=== PATIENT | female | born 1960 | race Caucasian/White ===

== ENCOUNTER 2017-09-09 09:37 | Emergency (ER) | payer MEDICARE | END 2017-09-09 11:00 | disposition home or self-care (01) | LOC: D.ER 09:37 | DX: J20.9 Acute bronchitis, unspecified (principal); J01.90 Acute sinusitis, unspecified; J44.9 Chronic obstructive pulmonary disease, unspecified; E11.9 Type 2 diabetes mellitus without complications ==

== ENCOUNTER 2017-10-18 10:38 | Emergency (ER) | payer MEDICARE ==
[2017-10-18 11:10] LABS: APPEARANCE HAZY (CLEAR); BILIRUBIN NEGATIVE (NEGATIVE); COLOR YELLOW (YELLOW); GLUCOSE 100 mg/dL (NEGATIVE); KETONE NEGATIVE (NEGATIVE); NITRITE NEGATIVE (NEGATIVE); PROTEIN NEGATIVE (NEGATIVE); UROBILINOGEN NORMAL (NORMAL)
[2017-10-18 11:17] LABS: BACTERIA MANY /hpf (NONE SEEN); MUCUS <1+ /lpf (NONE SEEN); RED CELLS - URINE 0-5 /hpf (0-5); YEAST <1+ /hpf (NONE SEEN)
[2017-10-18 11:51] LABS: BASOPHILS 0.4 % (0-2); EOSINOPHILS 1.6 % (0-7); HEMATOCRIT 37.9 % (36.0-48.0); HEMOGLOBIN 12.1 g/dL (12-16); IMMATURE GRANULOCYTES 0.4 % (0-5); LYMPHOCYTES 25.4 % (15-50); MCH 24.8 pg (26.0-34.0); MCHC 31.9 g/dL (31.0-37.0); MCV 77.7 fL (80.0-100.0); MEAN PLATELET VOLUME 9.3 fL (7.4-10.4); MONOCYTES 6.5 % (2-11); NEUTROPHILS 65.7 % (40-80); PLATELET COUNT 213 10x3/uL (130-400); RBC 4.88 10x6/uL (4.00-5.40); RDW 16.2 % (11.5-14.5); WBC 7.6 10x3/uL (4.8-10.8)
[2017-10-18 12:10] LABS: ALBUMIN 3.2 g/dL (3.4-5.0); ALKALINE PHOSPHATASE 101 U/L (46-116); ALT (SGPT) 22 U/L (10-68); BILIRUBIN - TOTAL 0.25 mg/dL (0.2-1.3); CALC OSMOLALITY 283 mosm/kg (275-300); CALCIUM 8.6 mg/dL (8.5-10.1); CARBON DIOXIDE 30.2 mmol/L (21.0-32.0); CHLORIDE - SERUM 106 mmol/L (98-107); CREATININE - SERUM 0.5 mg/dL (0.6-1.3); POTASSIUM - SERUM 4.2 mmol/L (3.5-5.1); PROTEIN - SERUM 7.1 g/dL (6.4-8.2); SODIUM 142 mmol/L (136-145); UREA NITROGEN 15 mg/dL (7-18); eGFR NON AFRICAN AMERICAN > 90 mL/min (90-120)
[2017-10-18 12:15] LABS: GLUCOSE 91 mg/dL (74-106)
== END 2017-10-18 13:46 | disposition home or self-care (01) ==
LOC: D.ER 10:38
PROVIDERS: Emergency Medicine
DX: N39.0 Urinary tract infection, site not specified (principal); J44.9 Chronic obstructive pulmonary disease, unspecified; E11.9 Type 2 diabetes mellitus without complications; F17.200 Nicotine dependence, unspecified, uncomplicated

== ENCOUNTER 2018-02-21 10:49 | Emergency (ER) | payer MEDICARE, MEDICAID ==
[~2018-02-21] VITALS: Ht 152.4 cm; Wt 73.2 kg
[2018-02-21 11:02] VITALS: Ht 152.4 cm; Wt 73.2 kg
[2018-02-21] MEDS ORDERED: NOVOLOG100 U/M1 (11:03)
[2018-02-21] MEDS ORDERED: LANTUS INSULIN10 ML SC (11:03)
[2018-02-21] MEDS ORDERED: MOBIC7.5 MG (11:04)
[2018-02-21] MEDS ORDERED: NEURONTIN600 MG PO (11:04)
[2018-02-21] MEDS ORDERED: GLIPIZIDE10 MG PO (11:04)
[2018-02-21] MEDS ORDERED: BASAGLAR K100 UNIT/1 (11:04)
[2018-02-21] MEDS ORDERED: ESTRACE1 MG PO (11:04)
[2018-02-21] MEDS ORDERED: ULTRAM50 MG (11:05)
[2018-02-21] MEDS ORDERED: LISINOPRIL10 MG PO (11:05)
[2018-02-21] MEDS ORDERED: ADIPEX-P37.5 MG PO (11:05)
[2018-02-21] MEDS ORDERED: REQUIP0.25 MG PO (11:05)
[2018-02-21] MEDS ORDERED: HYDROCODON-ACE1 EAC7 PO (11:54)
[2018-02-21 12:13] VITALS: BP 149/80
== END 2018-02-21 12:14 | disposition home or self-care (01) ==
LOC: D.ER 10:49
DX: S83.412A Sprain of medial collateral ligament of left knee, initial encounter (principal); W10.9XXA Fall (on) (from) unspecified stairs and steps, initial encounter; Y93.89 Activity, other specified; Y92.019 Unspecified place in single-family (private) house as the place of occurrence of the external cause; S86.912A Strain of unspecified muscle(s) and tendon(s) at lower leg level, left leg, initial encounter; I10 Essential (primary) hypertension; E11.9 Type 2 diabetes mellitus without complications; K21.9 Gastro-esophageal reflux disease without esophagitis